=== PATIENT | female | born 1965 | race Caucasian/White ===

== ENCOUNTER 2017-12-25 17:37 | Emergency (ER) | payer OTHER, BC ==
--- NOTE | 2017-12-25 18:58 | RAD ---
THREE VIEWS RIGHT FORELE12/25/17 INDICATION: Fall on curb with right leg pain. COMPARISON: None. FINDINGS: There is some chronic appearing heterotopic ossification seen along the posterior aspect of the proxi mal fibula. No acute fracture or subluxation is evident. Enthesopathic changes seen also of the jenkins la and tibia. IMPRESSION: No acute osseous abnormality. POS: [facility]
--- NOTE | 2017-12-25 19:53 | RAD ---
FOUR VIEWS OF THE LEFT KNEE 12/25/17 INDICATION: Fall with left leg pain. IMPRESSION: No acute fracture or subluxation is evident. Enthesopathic changes seen of the proximal tibia and ant erior patella. No joint capsular distention is evident. POS: [facility]
== END 2017-12-25 18:57 | disposition home or self-care (01) ==
LOC: NAV ERS 17:37
DX: S80.11XA Contusion of right lower leg, initial encounter (principal); S80.02XA Contusion of left knee, initial encounter; E11.9 Type 2 diabetes mellitus without complications; F32.9 Major depressive disorder, single episode, unspecified; I10 Essential (primary) hypertension; F17.210 Nicotine dependence, cigarettes, uncomplicated; Z79.82 Long term (current) use of aspirin; Z79.899 Other long term (current) drug therapy; Z79.4 Long term (current) use of insulin; W19.XXXA Unspecified fall, initial encounter